=== PATIENT | female | born 1945 | race Caucasian/White ===

== ENCOUNTER 2025-02-14 12:54 | Emergency (ER) | payer MEDICARE, SELFPAY ==
[~2025-02-14] VITALS: Ht 157.5 cm; Wt 59.3 kg
[2025-02-14] MEDS ORDERED: METO1TAB32 PO (13:24)
[2025-02-14] MEDS ORDERED: PROTPAK PO (13:25)
[2025-02-14] MEDS ORDERED: ATOR1TAB21 PO (13:25)
[2025-02-14] MEDS ORDERED: SITA50TAB PO (13:25)
[2025-02-14] MEDS ORDERED: TORS20TA2 PO (13:28)
[2025-02-14] MEDS ORDERED: FOLI1TAB11 PO (13:28)
[2025-02-14] MEDS ORDERED: THERTAB52 PO (13:29)
[2025-02-14] MEDS ORDERED: MOM 30ML SUSPENSION UDC PO PRN (16:50)
[2025-02-14] MEDS ORDERED: ACETAMINOPHEN 325 MG TAB PO PRN (16:50)
[2025-02-14] MEDS ORDERED: GLUCAGON INJ 1MG VIAL SC PRN (17:05)
[2025-02-14] MEDS ORDERED: DEXTROSE 50% 50ML SYRINGE IV PRN (17:05)
[2025-02-14] MEDS ORDERED: GLUCOSE 4 GM CHEW PO PRN (17:05)
[2025-02-14] MEDS: INSULIN LISPRO (NovoLOG) PER UNIT SC SCH (17:30)
[2025-02-14] MEDS ORDERED: HOME MED LIST COMPLETE! XX SCH (18:55)
[2025-02-15] MEDS: DOCUSATE SODIUM 100MG CAPSULE PO SCH (00:05)
[2025-02-15] MEDS: CYCLOBENZAPRINE 10MG TABLET PO SCH (00:05)
[2025-02-15] MEDS: ATORVASTATIN 20 MG TAB PO SCH (00:06)
[2025-02-15] MEDS: PANTOPRAZOLE 40MG TAB PO SCH (00:06)
[2025-02-15] MEDS: INSULIN LISPRO (NovoLOG) PER UNIT SC SCH (01:31)
[2025-02-15 09:00] VITALS: BP 107/58
[2025-02-15] MEDS: MIRALAX *UNIT DOSE* 17GM PACKET PO SCH (09:00)
[2025-02-15] MEDS: METOPROLOL SUCCINATE PO SCH (09:00)
[2025-02-15] MEDS: SITagliptin 50 MG TAB PO SCH (09:53)
[2025-02-15] MEDS: TORSEMIDE 20 MG TAB PO SCH (09:53)
[2025-02-15] MEDS: FOLIC ACID 1MG TAB PO SCH (09:53)
[2025-02-15] MEDS: MULTIVITAMINS/MINERALS THERAP 1 TAB PO SCH (09:53)
[2025-02-15 10:27] LABS: KETONE, URINE AUTO RFX NEGATIVE (NEGATIVE); NITRITE, URINE AUTO RFX NEGATIVE (NEGATIVE); RBC, URINE AUTO RFX 6 /HPF (0-3); SQUAM EPITHELIAL CELL UR AURFX 1 /HPF (0-6)
[2025-02-15 10:33] LABS: LEUKOCYTE ESTERASE UR AUTO RFX 3+ (NEGATIVE); WBC, URINE AUTO RFX TNTC /HPF (0-3)
[2025-02-15] MEDS ORDERED: CEFD1CAP9 PO (11:29)
[2025-02-15] MEDS ORDERED: TORS10TA3 PO (11:34)
[2025-02-15] MEDS: CEFDINIR 300 MG CAP PO STA (11:35)
[2025-02-15 12:30] VITALS: BP 110/62; TEMP 97.4; O2SAT 98
== END 2025-02-15 12:48 | disposition home or self-care (01) ==
LOC: EDBD 12:54 → M ED 12:54
DX: M54.50 Low back pain, unspecified (principal); I48.91 Unspecified atrial fibrillation; I50.22 Chronic systolic (congestive) heart failure; I11.0 Hypertensive heart disease with heart failure; Z88.1 Allergy status to other antibiotic agents; Z88.7 Allergy status to serum and vaccine; Z79.2 Long term (current) use of antibiotics; Z79.899 Other long term (current) drug therapy